=== PATIENT | male | born 1990 | race African-American/Black ===

== ENCOUNTER 2016-10-23 17:20 | Emergency (ER) | payer MEDICAID ==
[~2016-10-23] VITALS: Ht 185.4 cm; Wt 95.3 kg
[~2016-10-23 17:20] MED LIST: KEFLEX 500MG.500 MG PO; MEDROL 4MG. DOSE4 MG PO; NOMEDS *; PEN-VK500 MG PO; PREDNISONE 20MG20 MG PO; ZITHROMAX Z-PA250 M1 PO
--- OUTSIDE RECORDS SUMMARY | 2016-10-23 17:48 | External Medical Summary Rpt ---
Author Author , Organization [employer] Address Unknown Phone Unavailable Purpose Continuity of Care Document - 06-06-2015 through 2016 Problems Code Diagnosis DOS Provider Status H10.9 UNSPECIFIED CONJUNCTIVI TIS J01.90 ACUTE SINUSITIS, UNSPECIFIED J02.9 ACUTE PHARYNGITIS , UNSPECIFIED J20.9 ACUTE BRONCHITIS, UNSPECIFIED Results Labs Lab Lab Date Result Refere Interp Status Commen Order Detail nces retati t Range on CHLAMYDIA AND GONORRHEA TESTING (06-06-2015 15:15) Chlamyd NEGATIV complet ia 015 E ed trachom 15:15 atis rRNA [Presen ce] in Unspeci fied specime n by Probe & target amplifi cation method Neisser NEGATIV complet ia 015 E ed gonorrh 15:15 oeae rRNA [Presen ce] in Unspeci fied specime n by Probe & target amplifi cation method CHLAMYDIA AND GONORRHEA TESTING (06-06-2015 15:15) COLLECT E complet OR 015 ICHER ed 15:15 , RN ETHNICI BLACK, complet TY 015 NON-HIS ed 15:15 PANIC KIT 2015-06 complet EXPIRAT 015 -31 ed ION 15:15 DATE SYMPTOM NO complet S 015 ed 15:15 REASON SEX complet FOR 015 PARTNER ed REQUEST 15:15 REFERRA L SPECIME URINE complet N 015 ed SOURCE 15:15 PREGNAN NO complet T 015 ed 15:15 CHART [id number] complet NUMBER 015 98 ed 15:15 Chlamyd Pending complet ia 015 ed trachom 15:15 atis rRNA [Presen ce] in Unspeci fied specime n by Probe & target amplifi cation method Neisser Pending complet ia 015 ed gonorrh 15:15 oeae rRNA [Presen ce] in Unspeci fied specime n by Probe & target amplifi cation method
--- OUTSIDE RECORDS SUMMARY | 2016-10-23 17:48 | External Medical Summary Rpt ---
Author Author , Organization [employer] Address Unknown Phone Unavailable Purpose Continuity of Care Document - through 2016
--- OUTSIDE RECORDS SUMMARY | 2016-10-23 17:48 | External Medical Summary Rpt ---
[...] NO complet T 015 ed 15:15 CHART [id number] complet NUMBER 015 98 ed 15:15 Chlamyd Pending complet ia 015 ed trachom 15:15 atis rRNA [Presen ce] in Unspeci fied specime n by Probe & target amplifi cation method Neisser Pending complet ia 015 ed gonorrh 15:15 oeae rRNA [Presen ce] in Unspeci fied specime n by Probe & target amplifi cation method
--- OUTSIDE RECORDS SUMMARY | 2016-10-23 17:49 | External Medical Summary Rpt ---
Author Author [employer], [employer] Organization [employer] Address Unknown Phone Unavailable Results CHLAMYDIA AND GONORRHEA TESTING Observa Value Referen Units Interpr Notes Date tion ce etation Range COLLECT E No No No No Jun 06 OR KEICHER informa informa informa informa 2015 , RN tion in tion in tion in tion in 3:15 PM source source source source data data data data ETHNICI BLACK, No No No No Jun 06 TY NON-HIS informa informa informa informa 2015 PANIC tion in tion in tion in tion in 3:15 PM source source source source data data data data KIT 2015-06 No No No No Jun 06 EXPIRAT -31 informa informa informa informa 2015 ION tion in tion in tion in tion in 3:15 PM DATE source source source source data data data data SYMPTOM NO No No No No Jun 06 S informa informa informa informa 2015 tion in tion in tion in tion in 3:15 PM source source source source data data data data REASON SEX No No No No Jun 06 FOR PARTNER informa informa informa informa 2015 REQUEST tion in tion in tion in tion in 3:15 PM REFERRA source source source source L data data data data SPECIME URINE No No No No Jun 06 N informa informa informa informa 2015 SOURCE tion in tion in tion in tion in 3:15 PM source source source source data data data data PREGNAN NO No No No No Jun 06 T informa informa informa informa 2015 tion in tion in tion in tion in 3:15 PM source source source source data data data data CHART [id number] No No No No Jun 06 NUMBER 98 informa informa informa informa 2015 tion in tion in tion in tion in 3:15 PM source source source source data data data data Chlamyd NEGATIV No No No NEGATIV Jun 06 ia E informa informa informa E 2015 trachom tion in tion in tion in RESULT= 3:15 PM atis source source source WITHIN rRNA data data data NORMAL [Presen ce] in LIMITSP Unspeci OSITIVE fied specime RESULT= n by Probe & ABNORMA target LEQUIVO RUMA amplifi RESULT= cation method INDETER MINATEU NSATISF ACTORY RESULT= INVALID Neisser NEGATIV No No No NEGATIV Jun 06 ia E informa informa informa E 2015 gonorrh tion in tion in tion in RESULT= 3:15 PM oeae source source source WITHIN rRNA data data data NORMAL [Presen ce] in LIMITSP Unspeci OSITIVE fied specime RESULT= n by Probe & ABNORMA target LEQUIVO RUMA amplifi RESULT= cation method INDETER MINATEU NSATISF ACTORY RESULT= INVALID THE APTIMA COMBO 2 ASSAY IS NOT INTENDE D FOR THE EVALUAT ION OF SUSPECT EDSEXUA L ABUSE OR FOR OTHER MEDICO- LEGAL INDICAT IONS. FOR THOSE PATIENT S FORWHOM A FALSE POSITIV E RESULT MAY HAVE ADVERSE PSYCHO- SOCIAL IMPACT, [facility].\.br \This report contain s patient informa tion that must be protect ed in accorda nce with the Health Insuran ce Portabi lity and Account ability Act. CHLAMYDIA AND GONORRHEA TESTING Observa Value Referen Units Interpr Notes Date tion ce etation Range COLLECT E No No No No Jun 06 OR KEICHER informa informa informa informa 2015 , RN tion in tion in tion in tion in 3:15 PM source source source source data data data data ETHNICI BLACK, No No No No Jun 06 TY NON-HIS informa informa informa informa 2014 PANIC tion in tion in tion in tion in 3:15 PM source source source source data data data data KIT 2015- No No No No Jun 06 EXPIRAT -31 informa informa informa informa 2015 ION tion in tion in tion in tion in 3:15 PM DATE source source source source data data data data SYMPTOM NO No No No No Jun 06 S informa informa informa informa 2015 tion in tion in tion in tion in 3:15 PM source source source source data data data data REASON SEX No No No No Jun 06 FOR PARTNER informa informa informa informa 2015 REQUEST tion in tion in tion in tion in 3:15 PM REFERRA source source source source L data data data data SPECIME URINE No No No No Jun 06 N informa informa informa informa 2015 SOURCE tion in tion in tion in tion in 3:15 PM source source source source data data data data PREGNAN NO No No No No Jun 06 T informa informa informa informa 2015 tion in tion in tion in tion in 3:15 PM source source source source data data data data CHART [id number] No No No No Jun 06 NUMBER 98 informa informa informa informa 2015 tion in tion in tion in tion in 3:15 PM source source source source data data data data Chlamyd Pending No No No No Jun 06 ia informa informa informa informa 2015 trachom tion in tion in tion in tion in 3:15 PM atis source source source source rRNA data data data data [Presen ce] in Unspeci fied specime n by Probe & target amplifi cation method Neisser Pending No No No \.br\Jun 06 ia informa informa informa is 2015 gonorrh tion in tion in tion in report 3:15 PM oeae source source source contain rRNA data data data s [Presen patient ce] in Unspeci informa fied tion specime that n by must be Probe & target protect ed in amplifi accorda cation nce method with the Health Insuran ce Portabi lity and Account ability Act.
--- OUTSIDE RECORDS SUMMARY | 2016-10-23 17:49 | External Medical Summary Rpt ---
[...] source source data data data data CHART [id number] No No No No Jun 06 NUMBER [...] MAY HAVE ADVERSE PSYCHO- SOCIAL IMPACT, [facility] NG.\.br \This report contain s [...] source source data data data data CHART [id number] No No No No Jun 06 NUMBER [...]
--- OUTSIDE RECORDS SUMMARY | 2016-10-23 17:49 | External Medical Summary Rpt ---
Demographics Preferred Language Thai Marital Status Unknown Religion Affiliation Unknown Race Unknown Ethnic Group Unknown Author Author , Organization [employer] Address Unknown Phone Unavailable Purpose Continuity of Care Document - through 2016 Immunization No patient found.
--- OUTSIDE RECORDS SUMMARY | 2016-10-23 17:49 | External Medical Summary Rpt ---
Demographics Preferred Language Swedish Marital Status Unknown Faith Affiliation Unknown Race Unknown Ethnic Group Unknown Author Author , Organization [employer] Address Unknown Phone Unavailable Purpose Continuity of Care Document - through 2016 Immunization No patient found.
--- NOTE | 2016-10-23 18:19 | Urgent Treatment Center Report ---
History of Present Issue Date/Time Seen by Provider 10/23/16 1809 Visit Reason Pt arrived:Walked Presenting Problem:PT REPORTS DIFFCULTY TAKING A DEEP BREATH, NASAL AND CHEST CONGESTION WITH DRY HACKING COUGH THAT BEGAN YESTERDAY Location if Accident: Onset of symptoms date/time:10/22/16/ or onset unknown for:MEDICAL HX UNKNOWN Have you (or family members/close friends) recently traveled outside the [place]? N If Yes, where/when: Have you had exposure to infectious disease within the past month? TB? Other? Specify: Patient states that he has not felt good in awhile and feels like he cannot get a deep breath without it making him cough. Patient states that he has been having both nasal and chest congestion and he thought it would go away but yesterday he began having a dry cough and feeling worse so he came in today to get checked ALLERGIES Coded Allergies: No Known Allergies (04/09/16) Home Medications Reported Medications No Home Medications (NO HOME MEDICATIONS) 1 X * ONCE History Medical History General CAD? No Angina: No CO: No Hypertension? No Hyperlipidemia? No CHF? No DVT? No PE? No COPD? No Asthma? No Anemia? No GERD? No Gastric ulcers? No GI Bleed? No Hernia? No Thyroid Problems? No Hypothyroidism? No CVA? No Seizures? No Diabetes? No Renal Insuffiency? No UTI? No Stones? No BPH? No GB Disease: No Nephritic Syndrome? No Asplenia? No Hepatitis? No Sickle Cell Disease? No Arthritis? No Migraines? No Cataracts? No Glaucoma? No MRSA? No HIV? No TB? No Anxiety? No Depression? No Cancer? No More? No Immunization HX DT/Tetanus 5-10 Years Ago Surgical Hx Previous Surgery?Y CYST REMOVED ON NECK Social History Smoking Hx Smoker: Never Smoker Tobacco: No Alcohol Alcohol: No Review of Systems All Other Systems Reviewed and Negative ENT nose discharge, nose congestion, throat pain. Respiratory see HPI, cough Physical Exam Vital Signs Vital Signs Date Time Temp Pulse Resp B/P Pulse O2 O2 Flow FiO2 Ox Delivery Rate 10/23 1735 98.3 62 20 138/93 98 10/23 1724 98.3 62 20 138/93 98 General Appearance Patient appears ill sitting on exam table with dry cough Ear, Nose, Throat sinus pain/drainage, nasal congestion, throat red, nares red, greenish discharge noted Respiratory Status Yes: trachea midline, chest symmetrical, non tender chest. No: respiratory distress. Lung Sounds bilateral: rhonchi. Cardiovascular normal exam, regular rate/rhythm Neurologic alert, car rental clerk II-XII nml as tested, normal exam, no motor/sensory deficits, oriented x 3 Comments Patient complains of non-productive cough and over all not feeling well Medical Decision Making LABS/Meds/Orders Pt receiving controlled substance in ED? No Results/Orders Orders Procedure Date/time Status CHEST(2 VIEWS-NOT PORTABLE) 10/23 1813 Active XRAY/CT/US XRAY/CT/US XRAY chest XR interpretation by reviewed by me Xray Results no infiltrates Departure Departure Time of Disposition 1918 Disposition DC Home or Self Care(routine) Clinical Impression Primary Impression: Upper respiratory infection Qualifiers: URI type: unspecified URI Qualified Code: J06.9 - Acute upper respiratory infection, unspecified Condition STABLE Referrals Jorge A HANNA,Moriah Jaramillo (Family): 2 Days-Call Office if no improvement or worsening of symptoms Patient Instructions Cough, Guaifenesin, Sore Throat Additional Instructions * Monitor Temp. Tylenol and/or Ibuprofen as needed. ER if fever is no less than 101 despite alternating Tylenol and Ibuprofen * Encourage fluids, water, Gatorade, powerade, pedialyte if infant/toddler/or child * Warm salt water gargles for throat irritation *Warm fluids *Sore throat lozenges *Sleep elevated *humidifier or vaporizer *Flonase 2 sprays each nostril daily but may take 2-3 days to notice improvement with it Follow up IMMEDIATELY for new or worsening of symptoms OR no noticeable improvement over the next 48-72 hours. 911 immediately for any life threatening symptoms such as chest pain or difficulty breathing Discharge Counseling Counseled pt/family regarding diagnosis, test results, medications/RX, home care, follow up needs Prescriptions Current Visit Scripts Azithromycin (Zithromycin (Z-NOEL) 250MG Tab) 250 MG PO DAILY #6 TAB TAKE TWO (2) TABLETS ON DAY 1, THEN ONE (1) TABLET DAY #2 THRU #5 Fluticasone Propionate (Flonase 50 Mcg Nasal [place]) 2 SPRAY NA DAILY #1 BOT Methylprednisolone (Medrol Dose Noel) 4 MG PO UD #1 NOEL TAKE DIRECTED ON PACKAGING Guaifenesin (Coughtab) 200 MG PO Q4HP PRN cough #20 TAB at 1927
[2016-10-23] MEDS ORDERED: FLONASE 50 MCG16 GM (19:24)
[2016-10-23] MEDS ORDERED: MEDROL 4MG. DOSE4 MG PO (19:24)
[2016-10-23] MEDS ORDERED: THE MEDICINE S200 M1 PO (19:24)
[2016-10-23] MEDS ORDERED: ZITHROMAX Z PA250 MG PO (19:24)
[2016-10-23 19:27] VITALS: BP 138/93
--- NOTE | 2016-10-24 05:24 | RADIOLOGY REPORT PS360 ---
CHEST(2 VIEWS-NOT PORTABLE) HISTORY: COUGH/CONGESTION ORDERING PHYSICIAN: SYDNIE FRANKS APRN PATIENT AGE: 25 years COMPARISON: 11/08/2014 FINDINGS: The cardiomediastinal silhouette and pulmonary vascularity are within normal limits. The lungs are clear without infiltrates, suspicious nodules, or pleural effusions. No acute bony abnormalities. There is slight reversal of the lower thoracic kyphosis unchanged. Calcified azygos lymph nodes once again noted IMPRESSION: No change with no acute finding, old granulomatous disease
[2016-10-28] MEDS ORDERED: PROVENTIL0.09 MG/A1 IH (17:36)
== END 2016-10-23 19:29 | disposition home or self-care (01) ==
LOC: ER 17:20 → UTC 17:20
DX: J06.9 Acute upper respiratory infection, unspecified (principal)